=== PATIENT | male | born 1980 | race Caucasian/White ===

== ENCOUNTER 2017-06-25 11:09 | Emergency (ER) | payer OTHER ==
[~2017-06-25] VITALS: Ht 182.9 cm; Wt 78.0 kg
[~2017-06-25 11:09] MED LIST: CEFTIN500 MG PO
[2017-06-25] MEDS ORDERED: PROZAC20 MG PO (11:18)
[2017-06-25 11:51] LABS: INFLUENZA A ANTIGEN None Detected (None Detect); INFLUENZA B ANTIGEN None Detected (None Detect)
[2017-06-25] MEDS ORDERED: PROAIR HFA8.5 GM INH (11:57)
[2017-06-25] MEDS ORDERED: CHERATUSSIN AC118 ML PO (11:57)
[2017-06-25] MEDS ORDERED: ZPAK PO (11:57)
[2017-06-25] MEDS ORDERED: PREDNISONE 20 M20 M1 PO (12:02)
[2017-06-25 12:10] VITALS: BP 127/79
== END 2017-06-25 12:10 | disposition home or self-care (01) ==
LOC: M.ERS 11:09
PROVIDERS: Nurse Practitioner Family
DX: J06.9 Acute upper respiratory infection, unspecified (principal); J02.9 Acute pharyngitis, unspecified; R51 Headache; R50.9 Fever, unspecified; R04.0 Epistaxis

== ENCOUNTER 2017-07-09 06:26 | Emergency (ER) | payer OTHER ==
[~2017-07-09] VITALS: Ht 182.9 cm; Wt 78.0 kg
[~2017-07-09 06:26] MED LIST changes: +CHERATUSSIN AC118 ML PO; +PREDNISONE 20 M20 M1 PO; +PROAIR HFA8.5 GM INH; +PROZAC20 MG PO; +ZPAK PO
[2017-07-09 06:50] LABS: ABSOLUTE BASOPHILS 0.1 thou/uL (0.0-0.2); ABSOLUTE EOSINOPHILS 0.3 thou/uL (0.0-0.7); ABSOLUTE LYMPHOCYTES 1.6 thou/uL (0.8-5.3); ABSOLUTE MONOCYTES 0.6 thou/uL (0.0-1.2); ABSOLUTE NEUTROPHILS 3.8 thou/uL (1.6-8.1); BASOPHILS 1.2 %; EOSINOPHILS 4.1 %; HEMATOCRIT 42.4 % (42.0-52.0); HEMOGLOBIN 14.3 gm/dL (14.0-18.0); MCH 29.9 pg (26.0-34.0); MCHC 33.8 g/dL (28.0-37.0); MCV 88.6 fL (80.0-100.0); MONOCYTES 9.6 %; MPV 7.1 fl. (7.2-11.1); NUCLEATED RBCS 0 /100WBC; PLATELET COUNT* 262 thou/uL (150-400); POLYS 60.1 %; RBC 4.79 mil/uL (4.50-6.00); RDW-CV 12.8 % (10.5-14.5); WBC 6.3 thou/uL (4.0-11.0)
[2017-07-09 06:58] LABS: ANION GAP 8 mmol/L (7-16); BUN 14 mg/dL (7-18); CALCIUM 8.7 mg/dL (8.5-10.1); CHLORIDE 103 mmol/L (98-107); CO2 31 mmol/L (21-32); CREATININE 1.3 mg/dL (0.6-1.3); GLUCOSE 94 mg/dL (70-99); SODIUM 142 mmol/L (136-145)
[2017-07-09 07:00] LABS: APTT 28.7 Seconds (25.0-31.3); PROTIME 10.1 Seconds (9.20-11.50)
[2017-07-09 07:16] LABS: ALKALINE PHOSPHATASE 70 U/L (46-116); CK-MB MASS 0.5 ng/mL (<0.5-3.6); LIPASE 199 U/L (73-393); MAGNESIUM 2.2 mg/dL (1.8-2.4); NT-PRO BRAIN NAT PEPTIDE 30 pg/mL (<300); SGOT 22 U/L (15-37); SGPT 23 U/L (30-65); TOTAL BILIRUBIN 1.2 mg/dL (<0.1-1.0); TOTAL PROTEIN 7.5 g/dL (6.4-8.2); TROPONIN-I LEVEL <0.06 ng/mL (<0.06)
[2017-07-09] MEDS ORDERED: ULTRAM 50MG TAB50 MG PO (07:41)
[2017-07-09] MEDS ORDERED: TORADOL 10 MG T10 MG PO (07:41)
[2017-07-09 07:46] VITALS: BP 101/66
--- NOTE | 2017-07-09 17:27 | EKG ---
[place] [address] ELECTROCARDIOGRAM REPORT Name: TYESHA GARCIA 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 : 1980 Requested By: Heri Breen Order Number: [id number] MD: Anibal Medrano Measurements Intervals [place] Rate: 64 P: 70 [place]: 161 QRS: 55 QRSD: 82 T: 34 QT: 400 QTc: 413 Interpretive Statements Sinus rhythm RSR' in V1 or V2, probably normal variant No previous ECG available for comparison Electronically Signed On 07-09-2017 17:27:03 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
== END 2017-07-09 08:00 | disposition home or self-care (01) ==
LOC: M.ERS 06:26
PROVIDERS: Family Medicine
DX: R09.1 Pleurisy (principal)

== ENCOUNTER 2019-07-04 06:40 | Inpatient (IN) | payer OTHER ==
[~2019-07-04] VITALS: Ht 180.3 cm; Wt 89.8 kg
[~2019-07-04 06:40] MED LIST changes: +IRON325 PO; +OMEPRAZOLE40 MG PO; +TORADOL 10 MG T10 MG PO; +ULTRAM 50MG TAB50 MG PO
[2019-07-04 09:26] LABS: HEMATOCRIT 36.5 % (42.0-52.0); HEMOGLOBIN 11.4 gm/dL (14.0-18.0); MCH 22.5 pg (26.0-34.0); MCHC 31.1 g/dL (28.0-37.0); MCV 72.4 fL (80.0-100.0); MPV 7.4 fl. (7.2-11.1); RBC 5.05 mil/uL (4.50-6.00); RDW-CV 26.7 % (10.5-14.5); WBC 6.7 thou/uL (4.0-11.0)
[2019-07-04 09:33] LABS: CALCIUM 9.3 mg/dL (8.5-10.1); CREATININE 1.2 mg/dL (0.6-1.3); POTASSIUM 3.7 mmol/L (3.5-5.1)
[2019-07-04 19:25] VITALS: BP 103/57
[2019-07-05] VITALS: BP 108/63
[2019-07-05 03:42] LABS: HEMATOCRIT 30.9 % (42.0-52.0); HEMOGLOBIN 9.9 gm/dL (14.0-18.0); MCH 23.2 pg (26.0-34.0); MCV 72.6 fL (80.0-100.0); MPV 7.7 fl. (7.2-11.1); NUCLEATED RBCS 0 /100WBC; PLATELET COUNT* 358 thou/uL (150-400); RBC 4.25 mil/uL (4.50-6.00); RDW-CV 26.5 % (10.5-14.5); WBC 9.9 thou/uL (4.0-11.0)
[2019-07-05 03:46] LABS: CALCIUM 8.5 mg/dL (8.5-10.1); CREATININE 1.2 mg/dL (0.6-1.3); POTASSIUM 4.1 mmol/L (3.5-5.1)
[2019-07-05 03:57] LABS: MAGNESIUM 1.9 mg/dL (1.8-2.4); PHOSPHORUS* 4.1 mg/dL (2.5-4.9)
[2019-07-05 04:00] VITALS: BP 109/55
[2019-07-05 06:45] LABS: ABSOLUTE LYMPHOCYTES 0.5 thou/uL (0.8-5.3); ABSOLUTE MONOCYTES 0.3 thou/uL (0.0-1.2); ABSOLUTE NEUTROPHILS 9.1 thou/uL (1.6-8.1); HYPOCHROMASIA 1+; PLATELET ESTIMATE ADEQUATE
[2019-07-05 06:46] LABS: POLYCHROMASIA Occasional
[2019-07-05 06:47] LABS: ANISOCYTOSIS 1+; MICROCYTES 1+; OVALOCYTES 1+; POIKILOCYTOSIS 1+
[2019-07-05 11:34] VITALS: BP 108/72
[2019-07-05 16:33] VITALS: BP 101/59
[2019-07-05 19:42] VITALS: BP 116/78
[2019-07-06 01:00] VITALS: BP 97/60
[2019-07-06 03:35] LABS: HEMOGLOBIN 9.7 gm/dL (14.0-18.0); MCH 22.9 pg (26.0-34.0); MCHC 31.4 g/dL (28.0-37.0); MCV 72.9 fL (80.0-100.0); MPV 7.8 fl. (7.2-11.1); RBC 4.25 mil/uL (4.50-6.00); RDW-CV 25.8 % (10.5-14.5)
[2019-07-06 03:45] LABS: CALCIUM 8.6 mg/dL (8.5-10.1); CREATININE 1.2 mg/dL (0.6-1.3); POTASSIUM 3.6 mmol/L (3.5-5.1)
[2019-07-06 04:00] VITALS: BP 99/60
[2019-07-06 07:55] VITALS: BP 109/63
--- NOTE | 2019-07-06 15:31 | OP ---
[address] [address] OPERATIVE REPORT Name: RADHAKVNG Keith Room: [address] IN M.R.#: [id number] Admission: 07/04/19 Attend Phys: Darrell Feng Discharge: Date of : 84 Report #: [id number] THIS REPORT FOR: //name// cc: AUBREY COREAS MD, CHADWICK MD ~ THIS REPORT FOR: //name// CC: AUBREY Williamson DATE OF SERVICE: 07/04/2019 SURGEON: Kvng Williamson D.O. ASSISTANTS: 1. Zac De Souza D.O. 2. William Rivers D.O. 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 PROCEDURE PERFORMED: Laparoscopic right hemicolectomy. INDICATIONS: The patient is a 38-year-old male who presented initially with anemia. Upon further workup with the director custom, a colonoscopy was performed and synchronous cancers were found. He has been following with his oncologist, Dr. Nelson. The risks and benefits of surgery were discussed in detail with the patient and his , Reyna. Risks of bleeding, infection, damage to nearby structures, and anastomotic leak were explained. DESCRIPTION OF PROCEDURE: The patient was taken to the operating theater and placed in the supine position. Bilateral SCDs were placed. Preoperative antibiotics were given and a safety strap was placed across his lap. General anesthesia was induced without complication. Abdomen was then prepped and draped in the standard sterile fashion. A timeout was performed and all were in agreement. We then made a supraumbilical incision using a #11 blade scalpel and dissected the subcutaneous tissue using S retractors until the midline fascia was reached. The midline fascia was then elevated with Nimisha clamps and incised using electrocautery. The abdomen was then [place] [address] OPERATIVE REPORT Name: KVNG GARCIA Room: [address] IN ..#: [id number] Admission: 07/04/19 Attend Phys: Darrell Feng Discharge: Date of : 84 Report #: [id number] hemostat. A 5-mm trocar was then placed. The camera was inserted and the abdomen was insufflated to 15 mmHg. There were no injuries appreciated on abdominal entry. Next, the tattooed colon could be visualized. There appeared to be no obvious liver metastases or peritoneal deposits. Next, two 5-mm trocars were placed in the left upper quadrant and one 5mm port was placed in the left lower quadrant under direct visualization. The cecum was grasped with an atraumatic grasper and placed on tension medially. A LigaSure device was then used to take down the peritoneal attachments of the cecum. This dissection continued up the white line of Toldt along the ascending colon in the avascular plane. The hepatic flexure was then retracted inferomedially while the white line of Toldt and hepatic flexure was taken down using the LigaSure device. The patient was placed in the head-up position, left side down, and the lesser sac was entered. A blunt grasper was used to elevate the stomach while another blunt grasper was used to elevate the transverse colon. A window was created into the lesser sac using the LigaSure device. The LigaSure was then used to take down the retroperitoneal attachments keeping the mesentery and the omentum intact. Once the hepatic flexure had been completely mobilized, the patient was then placed in the head down position and the terminal ileum was freed from the peritoneal attachments with the ligasure device. The ureter was seen several times well below the dissection plane in the retroperitoneum. Next, the cecum was grasped and elevated anteriorly towards the abdominal wall, and the bare area was seen adjacent to the ileocolic vessels. The ileocolic vein and artery were then skeletonized using hook electrocautery and a [place] dissector approximately 1 cm above its root to the aorta and IVC . Once these had been skeletonized, two clips were placed on the proximal artery and proximal ileocolic vein. Using the LigaSure device, these were transected above the Hemoclips. Next, the supraumbilical incision was lengthened to approximately 5 cm and the midline trocar was removed. The abdomen was desufflated. A small wound protector was placed and the terminal ileum was extracorporealized. Approximately, 10 cm of terminal ileum was extracorporealized. A hemostat was used to create a window in the mesentery of the terminal ileum, the bowel was then transected with a LUCI stapler, blue load. The LigaSure device was then used to take the colonic mesentery. The mesentery was kept intact with the colonic specimen. The majority of the mesentery was removed until the middle colic branch was approached. We could visualize the duodenum and this was away from our dissection plane. Once the middle colic was appreciated, the right branch was skeletonized using the cautery and a [place] dissector. The right branch of the [place] [address] OPERATIVE REPORT Name: KVNG GARCIA Room: [address] IN ..#: [id number] Admission: 07/04/19 Attend Phys: Darrell Feng Discharge: Date of : 84 Report #: [id number] vein was clipped twice proximally and transected using the LigaSure device above the clips . A window in the mesentery was created under the transverse colon in between the transected right branch of the middle colic and the intact middle colic artery and vein using a hemostat. The transverse colon was then transected using a LUCI stapler, blue load. The entire specimen was removed from the operating field. Two tumors could be appreciated upon palpation; one in the cecum and one in the ascending colon. We appreciated several bulky lymph nodes within the mesentery and will be sent with the specimen. Approximately 10 cm of terminal ileum and 7 cm of transverse colon distal to the ascending colon tumor were taken with the specimen. Next, the terminal ileum staple line and the transverse colon staple line were extracorporealized and aligned in an isoperistaltic fashion. A crotch stitch was placed using 3-0 silk. The antimesenteric corner of the terminal ileum and transverse colon were then cut off using curved win scissors. A 60 LUCI stapler was then introduced and a common channel was created. There was some bleeding from the staple line at the common channel. This was stopped using a 3-0 Vicryl underneath the staple line in a [id number] fashion. Next, a TA stapler was used to close the common channel. The TA staple line was then oversewn using 3-0 silk in an imbricated Lembert fashion. The anastomosis appeared hemostatic and was palpated and patent. This was a skhe-rf-whov, functional end-to-end stapled anastomosis. We then looked at the mesenteric rent, which was very large. Small bowel could be seen on both sides of the rent. This was too large to close without tension, so this was not closed. Next, the midline port was placed through the now capped wound retractor. The abdomen was reinsufflated. The abdomen appeared hemostatic. The anastomosis was intact. The abdomen was then desufflated and all trocars were removed under direct visualization. The midline fascia was closed using a #1 PDS suture in a running fashion. The subcutaneous tissue at the midline was closed using 3-0 Vicryl in an interrupted fashion. All skin incisions were then closed using 4-0 Monocryl and dressed with Steri-Strips, gauze, and Tegaderms. This concluded the procedure. All sponge, instrument, and needle counts were correct x 2. ESTIMATED BLOOD LOSS: 30 mL. ANESTHESIA: General endotracheal anesthesia. SPECIMEN: Right colon, terminal ileum, right colon mesentery, [place] [address] OPERATIVE REPORT Name: RADHAKVNG Parker Room: [address] IN M.R.#: [id number] Admission: 07/04/19 Attend Phys: Darrell Feng Discharge: Date of : 84 Report #: [id number] DRAINS: None. DISPOSITION: The patient was extubated in the operating theater and taken to the PACU in stable condition. <ELECTRONICALLY SIGNED> By: Kvng Williamson DO 07/06/19 1531 1842 27Kvng Williamson DO /doris
[2019-07-06 16:04] VITALS: BP 98/58
[2019-07-06 20:00] VITALS: BP 96/54
[2019-07-07] VITALS: BP 120/77
[2019-07-07 03:14] LABS: HEMATOCRIT 32.1 % (42.0-52.0); MCH 22.7 pg (26.0-34.0); MCHC 31.1 g/dL (28.0-37.0); MCV 72.8 fL (80.0-100.0); MPV 7.9 fl. (7.2-11.1); RBC 4.41 mil/uL (4.50-6.00); RDW-CV 25.5 % (10.5-14.5); WBC 8.5 thou/uL (4.0-11.0)
[2019-07-07 03:56] LABS: CALCIUM 8.6 mg/dL (8.5-10.1); CREATININE 1.1 mg/dL (0.6-1.3); POTASSIUM 3.8 mmol/L (3.5-5.1)
[2019-07-07 05:00] VITALS: BP 116/67
[2019-07-07 16:11] VITALS: BP 116/67
[2019-07-07] MEDS ORDERED: OXYCODONE HCL 55 MG PO (16:32)
[2019-07-07] MEDS ORDERED: TYLENOL EXTRA500 MG PO (16:38)
[2019-07-07] MEDS ORDERED: IBUPROFEN200 M1 PO (16:41)
[2019-07-07 18:55] VITALS: BP 116/67
--- NOTE | 2019-07-10 17:07 | PATH ---
[address] [address] PATHOLOGY RPT PROCEDURE Name: KVNG GARCIA Room: [address] IN M.R.#: [id number] Admission: 07/04/19 Date of : 84 Discharge: 07/07/19 Report #: [id number] Path Case #: [id number] [facility] Accession Number: [id number] . 01 Material submitted: . ileum - RIGHT COLON AND TERMINAL ILEUM. Modifiers: right . 01 Clinical history: . Colon adenocarcinoma Colon cancer . 02 Diagnosis: Right colon and terminal ileum: - TWO SEPARATE MASSES OF MODERATELY DIFFERENTIATED ADENOCARCINOMA FOLLOWS: - Largest mass (#1) in cecum/ascending colon measuring 3.5 x 3.3 cm with transmural invasion through muscularis propria into pericolic fat without involvement of inked mesenteric resection margin. - Second mass (#2) located at appendiceal orifice measuring 2.4 x 2.3 cm, with transmural invasion focally into pericolic fat, without involvement of inked serosal surface. - SIX ADDITIONAL TUBULAR ADENOMAS INCLUDING ONE WITH HIGH-GRADE DYSPLASIA (MASS #3) WELL MORE THAN 4 ADDITIONAL GROSSLY IDENTIFIED POLYPS. - All surgical margins free of malignancy and adenomas. - Benign terminal ileum and benign appendix with fibrous obliteration of lumen and acute serositis. - NINETEEN PERICOLIC LYMPH NODES, ONE SHOWING METASTATIC ADENOCARCINOMA AND ANOTHER WITH ISOLATED TUMOR CELLS. SEE COMMENT. (QUAN:marvin; 07/07/2019) MBR 07/10/2019 1305 Local . 02 Comment: Surgical Pathology Cancer Case Summary . Procedure ___ Right hemicolectomy . Tumor Site ___ Cecum . Tumor Size Greatest dimension: 3.5 cm . Macroscopic Tumor Perforation ___ Not identified . Histologic Type ___ [place] [address] PATHOLOGY RPT PROCEDURE Name: KVNG GARCIA Room: [address] IN [facility]#: [id number] Admission: 07/04/19 Date of : 84 Discharge: 07/07/19 Report #: [id number] Path Case #: [id number] . Histologic Grade ___ G2: Moderately differentiated . Tumor Extension ___ Tumor invades through the muscularis propria into pericolorectal tissue . Margins ___ All margins are uninvolved by invasive carcinoma, high grade dysplasia / intramucosal carcinoma, and low grade dysplasia Margins examined: Proximal, distal, mesenteric. + Distance of invasive carcinoma from closest margin: At least 3 cm + Specify closest margin: Mesenteric . Proximal Margin ___ Uninvolved by invasive carcinoma, high grade dysplasia / intramucosal carcinoma, and low grade dysplasia + Distance of tumor from margin: Greater than 14 cm . Distal Margin ___ Uninvolved by invasive carcinoma, high grade dysplasia / intramucosal carcinoma, and low grade dysplasia + Distance of tumor from margin: Greater than 10 cm . Mesenteric Margin ___ Uninvolved by invasive carcinoma . Treatment Effect ___ No known presurgical therapy . Lymphovascular Invasion ___ Not identified . Perineural Invasion ___ Not identified . + Tumor Budding + ___ Number of tumor buds in 1 "hotspot" field: 3 + ___ Low score (0-4) . + Type of Polyp in Which Invasive Carcinoma Arose + ___ Tubular adenoma . Tumor Deposits ___ Not identified . Regional Lymph Nodes Number of Lymph Nodes Involved: 1 (see comment) [place] [address] PATHOLOGY RPT PROCEDURE Name: KVNG GARCIA Room: [address] IN [facility]#: [id number] Admission: 07/04/19 Date of : 84 Discharge: 07/07/19 Report #: [id number] Path Case #: [id number] . Number of Lymph Nodes Examined: 19 . . PATHOLOGIC STAGE CLASSIFICATION (PTNM, AJCC 8TH EDITION) TNM Descriptors ___ m (multiple primary tumors) . Primary Tumor (pT) ___ pT3:Tumor invades through the muscularis propria into pericolorectal tissues . Regional Lymph Nodes (pN) ___ pN1:One to three regional lymph nodes are positive (tumor in lymph nodes measuring >/=0.2 mm), or any number of tumor deposits are present and all identifiable lymph nodes are negative . + Ancillary Studies ___MICROSATELLITE INSTABILITY REPORT (MSI): . Immunohistochemical staining was performed on A5. . Specimen:Formalin fixed paraffin embedded tissue Reason for testing:To evaluate for evidence of defective mismatch repair proteins. Method:Immunohistochemical staining for the presence or absence of protein expression of the following MMR protein markers: MLH1, MSH2, MSH6 and PMS2. Tumor type:Adenocarcinoma . Results: MLH1 -Preserved MSH2 -Preserved MSH6 -Preserved PMS2 -Preserved . Mismatch Repair Status:MMR Proficient (MMR-P) . Interpretation: . (MMR-P) All four MMR proteins are preserved within tumor cells. This suggests the presence of normal DNA mismatch repair function within the tumor and an observable defect in mismatch repair is not identified. The likelihood that this patient has an inherited germline mutation syndrome due to defective mismatch repair is reduced but not totally eliminated. If the patient has a strong personal or family history of HPNCC/Zepeda syndrome related cancers (colorectal, endometrial, gastric, ovarian, pancreatic, ureter/renal pelvis, biliary tract, brain, small bowel and Aminah-Gustavo syndrome), consider MSI testing by PCR methodology. S[place] [address] PATHOLOGY RPT PROCEDURE Name: KVNG GARCIA Room: [address] IN [facility].#: [id number] Admission: 07/04/19 Date of : 84 Discharge: 07/07/19 Report #: [id number] Path Case #: [id number] . These test results are designed for screening purposes only and are useful tools in identifying cancer patients that are more likely to have Zepeda Syndrome related diagnoses. Tests should be interpreted in the context of clinical findings, family history and laboratory data. Abnormal IHC results for MMR protein expression are not considered diagnostic for Zepeda Syndrome. . Professional services performed on A5. Technical services performed by [facility] at [address] [place] [address], [address], [place] [address]. . . . Two separate foci of invasive tumor were found in the specimen and the CAP synoptic data is provided for the largest (mass #1). Both of the invasive tumors are seen to be in association with a tubular adenoma. One lymph node shows metastatic tumor (A21), however, an additional lymph node shows isolated tumor cells where a single aggregate spans 0.05 mm (A23). A3 and A8 reviewed with Dr. Sona Narvaez who agrees with the diagnosis. . (QUAN:marvin; 07/07/2019) . 02 Electronically signed: . Edmond Shepherd MD, Pathologist NPI- [id number] . 01 Gross description: . The specimen is received in formalin, labeled "Triplet, Kvng, right colon and terminal ileum" and consists of an extended right hemicolectomy with terminal ileum (15.0 cm in length and up to 1.9 cm in diameter), ascending colon (22.5 cm in length and up to 6.5 cm in diameter), appendix (8.0 cm in length and up to 0.5 cm in diameter), pericolic fat 6.0 cm, and omentum (11.0 x 8.0 cm. Both margins are closed with a staple line. The serosa is pink-sanchez with thin adhesions and black tattoo ink on the mid ascending colon. Opening reveals a pink-sanchez edematous terminal ileum with a raised area of hemorrhage measuring 1.5 cm that is greater than 1 cm from the proximal margin. There are multiple (more than 10) masses/polyps measuring between 0.3 x 0.3 cm up to 3.5 x 3.3 cm (mass #1), which are located in the cecum/ascending colon. The largest mass (#1) is at least 10 cm from the distal surgical margin. One polyp is 0.4 cm from the distal margin and all other masses/polyps are greater than 14 cm from the proximal margin. Gross photos are taken with the 4 largest masses being designated 1 through 4. Present at the appendiceal orifice is a friable ulcerated pink red mass measuring 2.4 x 2.3 cm (mass #2). The largest mass is pink-sanchez with rolled borders. The specimen is held for additional overnight fixation. (SDY; 07/05/2019) . The largest mass is designated 1 with the serosa inked black. Mass #1 is located approximately 3 cm away from the second largest mass (mass #2). [place] [address] PATHOLOGY RPT PROCEDURE Name: RADHAELAKVNG Keith Room: [address] IN [facility].#: [id number] Admission: 07/04/19 Date of : 84 Discharge: 07/07/19 Report #: [id number] Path Case #: [id number] Sectioning the largest mass reveals obliteration of the muscular wall with focal possible invasion of the mesocolic tissue. The deepest penetration is at least 3 cm from the mesenteric resection margin. The base of the cecum serosa is inked blue (mass 2). Sectioning mass 2 reveals obliteration of the muscular wall grossly abutting the serosa. Sectioning mass 3 reveals gross containment within the mucosa. Sectioning mass 4 reveals gross containment within the mucosa. The omentum reveals no masses or lesions. The appendix reveals a pinpoint lumen with possible fibrous obliteration. Present within the mesocolic tissue are multiple lymph nodes showing cannon brown to white cut surfaces. District Leader sections are submitted as follows: . A1: Proximal margin to include area of hemorrhage A2: Distal margin A3-A5: Mass 1 A6-A8: Mass 2 A9-A10: Mass 3 A11-A12: Mass 4 A13: 4 additional polyps (black ink and bisected polyp near distal margin) A14: Omentum A15: Appendix A16: Largest lymph node, serially sectioned A17: 1 trisected lymph node A18: 2 bisected lymph nodes, one inked blue A19: 1 trisected lymph node A20: 5 intact lymph nodes A21: One trisected lymph node A22: 2 bisected lymph nodes, one inked blue A23: 2 bisected lymph nodes, one inked blue A24: 2 bisected lymph nodes, one inked blue A25: 5 intact lymph node candidates (SDY; 07/06/2019) SYU/SYU 07/07/2019 1726 Local . 02 Pathologist provided ICD-10: C18.0, C77.2, D12.6 . 02 CPT . 983781, Q12655, J83258 Specimen Comment: A courtesy copy of this report has been sent to [phone] Specimen Comment: [phone] Specimen Comment: Report sent to / DR COREAS Performed at: [address], [place] [id number] MD Chago Jennings MD Phone: [phone] Performed at: 02 [place] [address] PATHOLOGY RPT PROCEDURE Name: RADHAKVNG Room: [address] IN ..#: [id number] Admission: 07/04/19 Date of : 84 Discharge: 07/07/19 Report #: [id number] Path Case #: [id number] [address], [place] [id number] MD Edmond Shepherd MD Phone: [phone]
== END 2019-07-07 18:55 | disposition home or self-care (01) | DRG 330 ==
LOC: M.PRE 06:40 → M.TBA 08:31 → M.ORTHSURG 08:31 → M.PRE 09:36 → M.ORTHSURG 19:25
PROVIDERS: Anesthesiology; Surgery; ADMIT Surgery
PROC: 0DTF4ZZ Resection of Right Large Intestine, Percutaneous Endoscopic Approach (ICD-10-PCS; principal; 2019-07-04)
DX: C18.2 Malignant neoplasm of ascending colon (principal); C18.0 Malignant neoplasm of cecum; K21.9 Gastro-esophageal reflux disease without esophagitis; D50.9 Iron deficiency anemia, unspecified; Z79.899 Other long term (current) drug therapy

== ENCOUNTER 2019-09-14 04:42 | Emergency (ER) | payer OTHER ==
[~2019-09-14] VITALS: Ht 175.3 cm; Wt 86.2 kg
[~2019-09-14 04:42] MED LIST changes: +IBUPROFEN200 M1 PO; +OXYCODONE HCL 55 MG PO; +TYLENOL EXTRA500 MG PO
[2019-09-14] MEDS ORDERED: XELODA150 MG PO (04:56)
[2019-09-14] MEDS ORDERED: CAPECITABINE500 MG PO (04:59)
[2019-09-14] MEDS ORDERED: ONDANSETRON HCL8 MG PO (05:00)
[2019-09-14 05:09] LABS: URINE BILIRUBIN NEGATIVE (Negative); URINE BLOOD NEGATIVE (Negative); URINE CLARITY CLEAR; URINE COLOR YELLOW; URINE GLUCOSE-RANDOM NEGATIVE (Negative); URINE KETONES NEGATIVE (Negative); URINE LEUKOCYTES-REFLEX NEGATIVE (Negative); URINE NITRITE-REFLEX NEGATIVE (Negative); URINE PROTEIN NEGATIVE (Negative); URINE SPECIFIC GRAVITY 1.025 (1.005-1.030); URINE UROBILINOGEN 0.2 E.U./dl (0.2-1.0)
[2019-09-14 05:32] LABS: ABSOLUTE LYMPHOCYTES 0.9 thou/uL (0.8-5.3); ABSOLUTE NEUTROPHILS 5.7 thou/uL (1.6-8.1); BASOPHILS 0.4 %; EOSINOPHILS 0.1 %; HEMATOCRIT 39.3 % (42.0-52.0); HEMOGLOBIN 13.2 gm/dL (14.0-18.0); LYMPHOCYTES 11.4 %; MCH 27.3 pg (26.0-34.0); MCHC 33.6 g/dL (28.0-37.0); MCV 81.3 fL (80.0-100.0); MONOCYTES 13.5 %; NUCLEATED RBCS 0 /100WBC; PLATELET COUNT* 248 thou/uL (150-400); POLYS 74.6 %; RBC 4.83 mil/uL (4.50-6.00); RDW-CV 19.1 % (10.5-14.5); WBC 7.6 thou/uL (4.0-11.0)
[2019-09-14 05:43] LABS: INR 1.1; PROTIME 11.3 Seconds (9.20-11.50)
[2019-09-14 05:45] LABS: CALCIUM 8.7 mg/dL (8.5-10.1); CREATININE 1.3 mg/dL (0.6-1.3); POTASSIUM 3.3 mmol/L (3.5-5.1)
[2019-09-14 05:55] LABS: ALBUMIN 3.9 g/dL (3.4-5.0); TOTAL BILIRUBIN 1.4 mg/dL (<0.1-1.0)
[2019-09-14] MEDS ORDERED: NORCO 5-325 TA1 EAC1 PO (08:39)
[2019-09-14] MEDS ORDERED: ZOFRAN ODT4 MG DISSOLVE (08:45)
[2019-09-14 09:06] VITALS: BP 102/56
--- NOTE | 2019-09-14 14:22 | EKG ---
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: : 1980 Requested By: Willa Renae Order Number: [id number] MD: Nick Renteria Measurements Intervals [place] Rate: 57 P: 51 DC: 152 QRS: 56 QRSD: 103 T: 30 QT: 462 QTc: 450 Interpretive Statements Sinus rhythm ST elev, probable normal early repol pattern Baseline wander in lead(s) V1 Compared to ECG 07/09/2017 06:29:34 no change Electronically Signed On 09-14-2019 14:20:50 CDT by Nick Renteria [email or web address] <ELECTRONICALLY SIGNED> By: Nick Renteria MD, [facility] 09/14/19 1420 0445 0445 Nick Renteria MD, [facility] /EPI
== END 2019-09-14 09:07 | disposition home or self-care (01) ==
LOC: M.ERS 04:42
PROVIDERS: Personal Emergency Response Attendant
DX: C18.9 Malignant neoplasm of colon, unspecified (principal)